=== PATIENT | male | born 1955 | race Caucasian/White ===

== ENCOUNTER 2016-05-23 09:01 | Emergency (ER) | payer OTHER ==
[~2016-05-23] VITALS: Ht 167.6 cm; Wt 86.2 kg
[~2016-05-23 09:01] MED LIST: LISINOPRIL40 MG PO; POLYTRIM O200 GTT/BO OPH
[2016-05-23 09:09] VITALS: BP 156/81
--- NOTE | 2016-05-23 09:18 | ED MVC/FALL/TRAUMA COMPLAINT ---
History of Present Illness General Chief Complaint: Fall Stated Complaint: FALL/HIT HEAD Source: patient Exam Limitations: no limitations Vital Signs & Intake/Output Vital Signs & Intake/Output Vital Signs Date Time Temp Pulse Resp B/P Pulse O2 O2 Flow FiO2 Ox Delivery Rate 05/23 0909 98.6 93 18 156/81 99 Room Air Allergies Coded Allergies: NO KNOWN ALLERGIES (12/07/13) Reconcile Medications Lisinopril 40 MG TABLET 1 TAB PO DAILY BP (Reported) Polytrim (Polytrim Eye Drops) 10,000 UNIT-1 MG/ML DROPS 1 GTT OPH Q6 welding light exposure Triage Note: C/O PAIN IN BACK OF HEAD S/P FALL ON ICE IN PARKING LOT AT WORK. STATES HE WAS DIZZY AFTER, DENIES LOC. Triage Nurses Notes Reviewed? yes Onset: Abrupt Duration: hour(s): (1) Timing: single episode today Severity: moderate Injuries/Fall Location: face Method of Injury: fall Loss of Consciousness: no loss of consciousness HPI: This is a 60-year-old male presents from work for chief complaint of headache and dizziness. He went to go get some orders from his car at 8:30 slipped on the ice and fell down and hit the back of his head. Denies loss of consciousness. Positive nausea but no vomiting. Denies any blurry vision but feels a little bit of a frontal headache. Denies any blood thinner medications. He is on blood pressure medications every day. No other associated symptoms. Past History Travel History Traveled to [place] past 21 day No Medical History Any Pertinent Medical History? see below for history Cardiovascular: hypertension Cancer(s): NONE Surgical History Surgical History: non-contributory Psychosocial History What is your primary language Turkmen Tobacco Use: Never used ETOH Use: occasional use Family History Hx Contributory? No Review of Systems Review of Systems Constitutional: Denies: chills, fever. Eyes: Denies: blurred vision. Ears, Nose, Throat, Mouth: Reports: no symptoms. Respiratory: Denies: cough, short of breath. Cardiovascular: Denies: chest pain. Gastrointestinal/Abdominal: Reports: nausea. Denies: abdominal pain, vomiting. Genitourinary: Reports: no symptoms. Musculoskeletal: Reports: no symptoms. Skin: Reports: no symptoms. Neurological/Psychological: Reports: see HPI (DIZZINESS), headache. All Other Systems: Reviewed and Negative Physical Exam Physical Exam General Appearance: well developed/nourished, alert, awake Head: atraumatic, normal appearance Eyes: Bilateral: normal appearance, PERRL, EOMI. Ears, Nose, Throat, Mouth: hearing grossly normal, moist mucous membrane Neck: normal inspection, supple, full range of motion, normal alignment, no midline tenderness Respiratory: normal breath sounds Cardiovascular: regular rate/rhythm Extremities: normal range of motion Neurologic/Psych: no motor/sensory deficits, awake, alert, oriented x 3, normal gait, normal mood/affect, pathological technician II-XII nml as tested Skin: intact, normal color, warm/dry Core Measures ACS in differential dx? No Severe Sepsis Present: No Septic Shock Present: No Progress Differential Diagnosis: ICH, CONCUSSION Plan of Care: HEAD CT NEGATIVE. NEURO EXAMINATION INTACT. PRESENTATION CONSISTENT WITH CONCUSSION RESULT OF MINOR HEAD INJURY. Diagnostic Imaging: Viewed by Me: CT Scan. Discussed w/RAD: CT Scan. Radiology Impression: PATIENT: KRISTIN GOODE PRESENT AGE: 60 PATIENT ACCOUNT NO: [id number] : 54 LOCATION: [facility] ORDERING PHYSICIAN: OBI HERNANDEZ MD SERVICE DATE: 05/23/16 EXAM TYPE: CAT - CT HEAD WO IV CONTRAST EXAMINATION: CT HEAD WITHOUT CONTRAST CLINICAL INFORMATION: Frontal headache. Dizziness. Status post fall. COMPARISON: None TECHNIQUE: Contiguous axial imaging was performed from the skull base to vertex without intravenous administration of contrast. DLP: 529 mGy-cm FINDINGS: There is no evidence of acute intracranial hemorrhage or territorial infarction. No abnormal mass effect or midline shift is seen. Koch to white matter differentiation is well preserved. No extra-axial fluid collections are identified. There is mild generalized prominence of the ventricles, sulci, and extra-axial CSF spaces. Mild hypoattenuation in the bihemispheric white matter. No fractures. There is mild mucosal thickening in the partially imaged ethmoid air cells. The temporal mandibular joints articulate normally. The mastoid air cells are hypopneumatized but clear. The middle ear cavities are clear. The patient is edentulous. There is minor subcutaneous fat stranding within the occipital region. IMPRESSION: No acute intracranial pathology. DICTATED BY: SHANKAR PAEZ MD DATE/TIME DICTATED:05/23/16937 LEAD GENERATION REPRESENTATIVE:GATITO DATE/ TIME TRANSCRIBED:05/23/16937 CONFIDENTIAL, DO NOT COPY WITHOUT APPROPRIATE AUTHORIZATION. <Electronically signed in Other Vendor System> SIGNED BY: SHANKAR PAEZ MD 05/23/1644 Departure Departure Time of Disposition: 945 Disposition: HOME OR SELF CARE Condition: Stable Clinical Impression Primary Impression: Head injury Secondary Impressions: Concussion Referrals: CLAUS TURNER MD (PCP/Family) Additional Instructions: Follow-up with your doctor in the office. Return to the ER for any nausea, vomiting, blurred vision, worsening dizziness or difficulty walking. Departure Forms: Customer Survey General Discharge Information
--- NOTE | 2016-05-23 09:44 | CT SCAN REPORT ---
EXAMINATION: CT HEAD WITHOUT CONTRAST CLINICAL INFORMATION: Frontal headache. Dizziness. Status post fall. COMPARISON: None TECHNIQUE: Contiguous axial imaging was performed from the skull base to vertex without intravenous administration of contrast. DLP: 529 mGy-cm FINDINGS: There is no evidence of acute intracranial hemorrhage or territorial infarction. No abnormal mass effect or midline shift is seen. Koch to white matter differentiation is well preserved. No extra-axial fluid collections are identified. There is mild generalized prominence of the ventricles, sulci, and extra-axial CSF spaces. Mild hypoattenuation in the bihemispheric white matter. No fractures. There is mild mucosal thickening in the partially imaged ethmoid air cells. The temporal mandibular joints articulate normally. The mastoid air cells are hypopneumatized but clear. The middle ear cavities are clear. The patient is edentulous. There is minor subcutaneous fat stranding within the occipital region. IMPRESSION: No acute intracranial pathology.
== END 2016-05-23 10:01 ==
LOC: ERH 09:01
DX: S09.90XA Unspecified injury of head, initial encounter (principal); S06.0X9A Concussion with loss of consciousness of unspecified duration, initial encounter; W00.0XXA Fall on same level due to ice and snow, initial encounter